=== PATIENT | female | born 1990 | race Caucasian/White ===

== ENCOUNTER → 2018-03-24 | Outpatient (CLI) | payer OTHER ==
[~2018-03-24] MED LIST: BCP; BIRTH CONTROL; CEPH500 PO; CITA20 PO; DIPATR PO; HYDR1TAB94 PO; IBUP800 PO; Keflex500 MG PO; LORA.5 PO; Norco 5-325 Ta1 EACH PO; OXYACE5T PO; PARO20 PO; PROM25 PO; Verotin-Gr Cap1 EACH PO; Zofran Odt4 MG SL
== END ==
LOC: LAB SHORT 10:58 → LAB 10:58
PROVIDERS: Obstetrics & Gynecology
DX: Z01.419 Encounter for gynecological examination (general) (routine) without abnormal findings (principal)
CPT/HCPCS: G0123

== ENCOUNTER → 2018-09-24 | Outpatient (CLI) | payer OTHER | END | disposition home or self-care (01) | LOC: LAB EV 15:54 → LAB SHORT 15:54 | DX: N12 Tubulo-interstitial nephritis, not specified as acute or chronic (principal) | CPT/HCPCS: 87077; 87086; 87186 ==

== ENCOUNTER → 2018-12-16 | Outpatient (CLI) | payer OTHER ==
[2018-12-16 17:47] LABS: BASOPHILS ABSOLUTE AUTO 0.03 K/mm3 (0.00-0.23); BASOPHILS PERCENT AUTO 0 % (0-2); EOSINOPHILS ABSOLUTE AUTO 0.33 K/mm3 (0.00-0.68); EOSINOPHILS PERCENT AUTO 3 % (0-6); Hematocrit 43.4 % (33.0-51.0); Hemoglobin 14.5 g/dL (11.5-16.0); IMMATURE GRAN ABSOLUTE AUTO 0.02 K/mm3 (0.00-0.10); IMMATURE GRAN PERCENT AUTO 0 % (0-1); LYMPHOCYTES PERCENT AUTO 25 % (21-46); MONOCYTES ABSOLUTE AUTO 0.88 K/mm3 (0.16-1.47); MONOCYTES PERCENT AUTO 9 % (4-13); Mean Corpuscular HGB 29.9 pg (26.0-34.0); Mean Corpuscular HGB Conc 33.4 g/dL (31.5-36.5); Mean Corpuscular Volume 90 fL (80-100); Mean Platelet Volume 9.9 fL (9.1-12.4); NEUTROPHILS ABSOLUTE AUTO 5.94 K/mm3 (1.96-9.15); NEUTROPHILS PERCENT AUTO 62 % (41-73); Platelet Count 396 K/mm3 (150-400); RDW Coefficient Variation 13.5 % (11.7-14.2); Red Blood Cell Count 4.85 M/mm3 (3.80-5.20)
[2018-12-16 18:04] LABS: Anion Gap 9 mmol/L (6-16); Blood Urea Nitrogen 8 mg/dL (8-24); Bun/Creatinine Ratio 9.8 (12.0-20.0); CO2, Blood 27 mmol/L (21-32); Calcium, Blood 9.3 mg/dL (8.5-10.1); Chloride, Blood 102 mmol/L (98-108); Creatinine, Blood 0.82 mg/dL (0.40-1.00); Glomerular Filtration Rate >60 (60-); Glucose, Blood 96 mg/dL (70-99); Potassium, Blood 3.6 mmol/L (3.5-5.5); Sodium, Blood 138 mmol/L (136-145)
== END | disposition home or self-care (01) ==
LOC: LAB EV 17:42 → LAB SHORT 17:42
PROVIDERS: Physician Assistant Surgical
DX: R53.83 Other fatigue (principal)
CPT/HCPCS: 80048; 84439; 84443; 84481; 85025; 86800

== ENCOUNTER 2020-01-09 17:43 | Inpatient (IN) | payer OTHER ==
[~2020-01-09] VITALS: Ht 160 cm; Wt 71.8 kg
[~2020-01-09 17:43] MED LIST changes: +Bactrim Ds Tab1 EACH PO
[2020-01-09 19:04] LABS: Source, Urine Clean Catch
[2020-01-09 19:05] LABS: Hematocrit 42.4 % (33.0-51.0); Hemoglobin 13.8 g/dL (11.5-16.0); Mean Corpuscular HGB 28.4 pg (26.0-34.0); Mean Corpuscular HGB Conc 32.5 g/dL (31.5-36.5); Mean Corpuscular Volume 87 fL (80-100); Mean Platelet Volume 9.4 fL (9.1-12.4); Platelet Count 522 K/mm3 (150-400); RDW Coefficient Variation 12.9 % (11.7-14.2); RDW Standard Deviation 41.7 fL (35.1-46.3); Red Blood Cell Count 4.86 M/mm3 (3.80-5.20); White Blood Cell Count 31.25 K/mm3 (4.00-11.30)
[2020-01-09 19:08] LABS: Appearance, Urine Hazy (Clear); Bilirubin, Urine Neg (Neg); Blood, Urine 5+ (Neg); Color, Urine Yellow (P-Yellow); Glucose Qualitative, Urine Neg (Neg); Ketones, Urine Neg (Neg); Leukocyte Esterase, Urine 2+ (Neg); Nitrite, Urine Neg (Neg); Protein, Urine 2+ (Neg); Urobilinogen, Urine 2+ (Normal)
[2020-01-09 19:15] LABS: Bacteria Many /hpf; Mucus Light (0-Heavy); Squamous Epithelial Cells Many /hpf (Few)
[2020-01-09 19:24] LABS: U Amphetamine Screen DETECTED; U Barbituate Screen Not Detected; U Benzodiazapine Screen DETECTED; U Buprenorphine Screen Not Detected; U Cannabinoids Screen DETECTED; U Cocaine Screen Not Detected; U Methadone Screen Not Detected; U Methamphetamine Screen DETECTED; U Opiates Screen Not Detected; U Oxycodone Screen Not Detected; U Phencyclidine Screen Not Detected; U Propoxyphene Screen Not Detected
[2020-01-09 19:26] LABS: Anion Gap 8 mmol/L (6-16); Blood Urea Nitrogen 7 mg/dL (8-24); Bun/Creatinine Ratio 9.8 (12.0-20.0); CO2, Blood 27 mmol/L (21-32); Calcium, Blood 8.5 mg/dL (8.5-10.1); Chloride, Blood 98 mmol/L (98-108); Creatinine, Blood 0.71 mg/dL (0.40-1.00); Glomerular Filtration Rate >60 (60-); Glucose, Blood 108 mg/dL (70-99); Sodium, Blood 133 mmol/L (136-145)
[2020-01-09 19:31] LABS: BAND PERCENT MAN 5 % (0-8); BASOPHILS PERCENT MAN 0 % (0-2); EOSINOPHILS PERCENT MAN 0 % (0-6); LYMPHOCYTES ABSOLUTE MAN 3.12 K/mm3 (0.84-5.20); LYMPHOCYTES PERCENT MAN 10 % (21-46); METAMYELOCYTE ABSOLUTE MAN 1.87 K/mm3 (0.00-0.00); METAMYELOCYTE PERCENT MAN 6 % (0-0); MONOCYTES ABSOLUTE MAN 1.87 K/mm3 (0.16-1.47); MONOCYTES PERCENT MAN 6 % (4-13); MYELOCYTE ABSOLUTE MAN 0.62 K/mm3 (0.00-0.00); MYELOCYTE PERCENT MAN 2 % (0-0); NEUTROPHILS ABSOLUTE MAN 22.18 K/mm3 (1.96-9.15); PROMYELOCYTE ABSOLUTE MAN 0.93 K/mm3 (0.00-0.00); PROMYELOCYTE PERCENT MAN 3 % (0-0); SEG NEUTROPHILS PERCENT MAN 66 % (41-73); TOTAL CELLS COUNTED 100
[2020-01-09 19:32] LABS: OTHER CELL PERCENT MAN 2 % (0-0)
--- NOTE | 2020-01-09 22:58 | NUR ---
PATIENT IS A NEW ADMIT FROM THE ED AXO X 4. ARRIVED VIA W/C AND INDEPENDENT TRANSPORT TO BED. REPORTS RIGHT EYE SURGERY X FIVE DAYS AGO. PATIENT REPORTS LEFT ARM PAIN WITH SCABS AND ABCESSES SCATTER T/O LEGS, ARMS, BACK AND LEFT FOREHEAD. PATIENT ORIENTED TO ROOM AND CALL LIGHT SYSTEM. CEDS AND REPORTS LAST USED METH ONE MONTH AGO AND SMOKES CANNABIS FOUR DAYS A WEEK. WILL CONTINUE TO MONITOR.
--- NOTE | 2020-01-09 23:04 | NUR ---
IMAGING CALLED AND REPORTS PATIENT SENT TO MEDICAL BEFORE CT SCAN. HOSPITALIST DR REYES NOTIFIED AND REPORTS CT SCAN NEEDED TONIGHT. CHARGE NURSE NOTIFIED AND WILL HAVE PATIENT TRANSPORTS TO IMAGING BY AN RN.
--- NOTE | 2020-01-09 23:06 | NUR ---
TELEMETRY PLACED AND TECH REPORTS ST 115. CALL LIGHT IN REACH.
--- NOTE | 2020-01-09 23:36 | NUR ---
PATIENT OUT TO IMAGING FOR CT SCAN PER ORDERS VIA W/C.
--- NOTE | 2020-01-10 00:38 | NUR ---
PATIENT REFUSING IV POTASSIUM CHLORIDE 20 MEQ AND NS AT 125 ML/HR. PATIENT EXTREMELY ANXIOUS AT THIS TIME. WILL TRY LATER.
--- NOTE | 2020-01-10 02:14 | NUR ---
HOSPITALIST DR ALCAZAR CHANGED IV POTASSIUM TO PO POTASSIUM 40 MEQ X ONE.
--- NOTE | 2020-01-10 03:10 | NUR ---
SHIFT SUMMARY PATIENT HAVING INCREASED AGITATION AND FIDGETING WITH IV FLUIDS INFUSING. HX OF METH ABUSE. PATIENT REFUSED IV POTASSIUM AND ASKED FOR FLUIDS TO BE OFF AND RESTARTED LATER IN SHIFT. IV POTASSIUM CHANGED TO PO BY HOSPITALIST DR ALCAZAR. IMAGING REPORTED CT SCAN WASN'T COMPLETE BEFORE PATIENT SET TO MEDICAL FLOOR. DR ALCAZAR NOTIFIED AND REPORTED TO SEND PATIENT FOR SCAN. TOOK PO MEDICATION WHOLE WITH WATER. REPORTED LEFT ARM PAIN AND IV FENTANYL 25 MCG GIVEN PER EMAR. TYLENOL 650 MG GIVEN FOR L ARM PAIN. PIV REMAINS INTACT. BURGLARY INVESTIGATOR REPORTS ST 106-115. MULTIPLE SMALL ABSECESSES/SCABS ON FACE, BACK, AND EXTREMETIES. REPORTED RIGHT EYE SURGERY X FIVE DAYS AGO. PATIENT ANXIOUS T/O NIGHT AND MOANING-TALKING TO SELF. CALL LIGHT IN REACH. BED IN LOWEST POSITION. WILL CONTINUE TO MONITOR UNTIL DAY SHIFT NURSE ASSUMES CARE.
[2020-01-10 05:14] LABS: Hemoglobin 12.7 g/dL (11.5-16.0); Mean Corpuscular HGB 28.2 pg (26.0-34.0); Mean Corpuscular HGB Conc 32.6 g/dL (31.5-36.5); Mean Corpuscular Volume 87 fL (80-100); Mean Platelet Volume 9.6 fL (9.1-12.4); Platelet Count 454 K/mm3 (150-400); RDW Coefficient Variation 13.1 % (11.7-14.2); RDW Standard Deviation 41.1 fL (35.1-46.3); Red Blood Cell Count 4.51 M/mm3 (3.80-5.20); White Blood Cell Count 33.03 K/mm3 (4.00-11.30)
[2020-01-10 05:54] LABS: Alanine Aminotransfer (ALT/SGP 39 U/L (12-78); Albumin, Blood 2.4 g/dL (3.4-5.0); Albumin/Globulin Ratio 0.6 (0.8-1.8); Alk Phos 145 U/L (50-136); Anion Gap 10 mmol/L (6-16); Aspartate Aminotrans (AST/SGOT 24 U/L (12-37); Bilirubin, Total 0.4 mg/dL (0.1-1.0); Blood Urea Nitrogen 5 mg/dL (8-24); Bun/Creatinine Ratio 7.2 (12.0-20.0); CO2, Blood 24 mmol/L (21-32); Chloride, Blood 103 mmol/L (98-108); Free Thyroxine 1.27 ng/dL (0.70-1.60); Globulin, Blood 3.9 g/dL (2.2-4.0); Glomerular Filtration Rate >60 (60-); Glucose, Blood 96 mg/dL (70-99); Potassium, Blood 3.3 mmol/L (3.5-5.5); Sodium, Blood 137 mmol/L (136-145); Thyroid Stimulating Hormone 0.033 uIU/mL (0.360-4.800); Total Protein, Blood 6.3 g/dL (6.4-8.2); Triiodothyronine, Free 2.61 pg/mL (2.18-3.98)
[2020-01-10 06:11] LABS: BAND PERCENT MAN 4 % (0-8); BASOPHILS PERCENT MAN 0 % (0-2); EOSINOPHILS PERCENT MAN 0 % (0-6); LYMPHOCYTES ABSOLUTE MAN 3.63 K/mm3 (0.84-5.20); LYMPHOCYTES PERCENT MAN 11 % (21-46); METAMYELOCYTE ABSOLUTE MAN 1.65 K/mm3 (0.00-0.00); METAMYELOCYTE PERCENT MAN 5 % (0-0); MONOCYTES PERCENT MAN 10 % (4-13); MYELOCYTE ABSOLUTE MAN 2.64 K/mm3 (0.00-0.00); MYELOCYTE PERCENT MAN 8 % (0-0); NEUTROPHILS ABSOLUTE MAN 21.46 K/mm3 (1.96-9.15); PROMYELOCYTE ABSOLUTE MAN 0.33 K/mm3 (0.00-0.00); PROMYELOCYTE PERCENT MAN 1 % (0-0); SEG NEUTROPHILS PERCENT MAN 61 % (41-73); TOTAL CELLS COUNTED 100
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
--- NOTE | 2020-01-10 18:42 | NUR ---
PT CAME OUT IN THE HALLWAY AND REPORTS THE PAIN IN HER ARM HAS MOVED FROM BICEP TO LEFT INNER ARM/ AC AREA. PT NOTED TO HAVE INCREASED SWLLING AND REDNESS BEYOND OUTLINED AREA FROM THIS AM. CALLED AND SPOKE WITH DR ANDRES, PER DR ANDRES NO CHANGES TONIGHT AND HE MAY REPEAT CT SCAN TOMORROW. [facility] ENCOURAGED TO ELEVATE ARM. WILL REPORT TO NIGHT RN.
--- NOTE | 2020-01-10 20:24 | NUR ---
CALL TO HOSPITALIST D/T PT REPORTS OF INCREASING PAIN IN LUE AND POOR PAIN MANAGEMENT. PT EXPERIENCING HIGH ANIXIETY SURROUNDING THE INCREASED REDNESS AND SWELLING OF HER ARM. ATIVAN ADMINISTERED ORDERED. HOSPITALIST, MERI, ORDERED 1X DOSE OF TORADOL 30MG IV X 1.
--- NOTE | 2020-01-11 04:29 | NUR ---
SHIFT SUMMARY: TACHYCARDIC. AFEB. AAOX3. COMMUNICATES NEEDS. PT RESPONDED WELL TO PRN ATIVAN. CONT TO BE JITTERY AND SPEAKS QUICKLY, BUT GENERALLY LESS ANXIOUS. OT DOSE OF TORADOL EFFECTIVELY MANAGED PAIN. OXYCODONE GIVEN W/ TYLENOL X 1 TONIGHT, PT STATES LESS EFFECTIVE THAN TORADOL, BUT STILL HELPFUL. L ARM W/SWELLING AND REDNESS BEYOND THE [place]ARPIE OUTLINE, CONSISTENT W/INCREASED ERYTHEMA NOTED BY AND REPORTED TO MD BY DAY RN. WILL CONT TO MONITOR.
[2020-01-11 05:47] LABS: Anion Gap 5 mmol/L (6-16); Blood Urea Nitrogen 12 mg/dL (8-24); Bun/Creatinine Ratio 15.1 (12.0-20.0); CO2, Blood 26 mmol/L (21-32); Calcium, Blood 7.8 mg/dL (8.5-10.1); Chloride, Blood 103 mmol/L (98-108); Glomerular Filtration Rate >60 (60-); Glucose, Blood 109 mg/dL (70-99); Potassium, Blood 3.4 mmol/L (3.5-5.5); Sodium, Blood 134 mmol/L (136-145)
[2020-01-11 05:48] LABS: Hematocrit 37.3 % (33.0-51.0); Hemoglobin 12.2 g/dL (11.5-16.0); Mean Corpuscular HGB 28.8 pg (26.0-34.0); Mean Corpuscular HGB Conc 32.7 g/dL (31.5-36.5); Mean Corpuscular Volume 88 fL (80-100); Mean Platelet Volume 9.8 fL (9.1-12.4); Platelet Count 470 K/mm3 (150-400); RDW Coefficient Variation 13.4 % (11.7-14.2); RDW Standard Deviation 43.3 fL (35.1-46.3); Red Blood Cell Count 4.23 M/mm3 (3.80-5.20); White Blood Cell Count 49.92 K/mm3 (4.00-11.30)
[2020-01-11 06:01] LABS: BAND PERCENT MAN 7 % (0-8); BASOPHILS PERCENT MAN 0 % (0-2); EOSINOPHILS PERCENT MAN 0 % (0-6); LYMPHOCYTES ABSOLUTE MAN 2.99 K/mm3 (0.84-5.20); LYMPHOCYTES PERCENT MAN 6 % (21-46); METAMYELOCYTE ABSOLUTE MAN 3.49 K/mm3 (0.00-0.00); METAMYELOCYTE PERCENT MAN 7 % (0-0); MONOCYTES ABSOLUTE MAN 3.99 K/mm3 (0.16-1.47); MONOCYTES PERCENT MAN 8 % (4-13); MYELOCYTE ABSOLUTE MAN 2.99 K/mm3 (0.00-0.00); MYELOCYTE PERCENT MAN 6 % (0-0); NEUTROPHILS ABSOLUTE MAN 36.44 K/mm3 (1.96-9.15); SEG NEUTROPHILS PERCENT MAN 66 % (41-73); TOTAL CELLS COUNTED 100
[2020-01-11 13:21] LABS: Free Thyroxine 1.23 ng/dL (0.70-1.60)
[2020-01-11 13:22] LABS: Thyroid Stimulating Hormone 0.045 uIU/mL (0.360-4.800)
--- NOTE | 2020-01-11 17:34 | NUR ---
SHIFT SUMMARY- PT IS A/O, PLESANT AND COOPERATIVE. HER ARM IS HOT, RED AND SWOLLEN, AND THE REDNESS HAS MIGRATED BEYOND THE PREVIOUS DAYS MARKINGS. DR. AGUILA CONSULTED AND SHE WILL GO THIS EVENING FOR AND I/D WITH WOUND VAC. DR. LYNN WAS CONSULTED AND WILL DRAIN AN ABCESS ON HER PUBIC AREA. SHE IS RECIEVING PAIN MEDICATION. SHE WAS PLACED NPO FOR UPCOMING PROCEDURES.
--- NOTE | 2020-01-11 21:18 | NUR ---
RECEIVED REPORT FROM PACU NURSE BENNY AT 2009. PT ARRIVED BACK ON MEDICAL FLOOR AT 2019. DROWSY BUT RESPONSIVE TO VERBAL STIMULI. VSS. CONT TO BE TACHYCARDIC, COMPARABLE TO BASELINE. IV LR DRIPPING SLOWLY. DRESSING TO MONS PUBIS CDI. WOUND VAC SUCTION AT 120MMHG ON CATHERINE CONTINUOUSLY. SMALL AMTS OF SEROSANGUINOUS DRAINAGE IN COLLECTION CHAMBER. R ARM CONTINUES POONAM RED AND SWOLLEN. OXY AND TYL ADMINISTERED FOR PAIN 04/11 ORDERED.
--- NOTE | 2020-01-12 04:58 | NUR ---
SHIFT SUMMARY: TEMP 99'S AND PULSE BETWEEN 92-112 TONIGHT. MED X 2 W/OXYCODONE AND TYLENOL. PT STATES ANALGESICS HELP. CATHERINE W/WOUND VAC IN PLACE AND SUCTIONING CONTINUOUSLY. SCANT AMTS OF SEROSANG DRAINAGE IN WOUND VAC CONTAINER AND TUBING. IV ABT INFUSED ORDERED. CATHERINE CONT TO BE RED, HOT TO TOUCH AND SWOLLEN. DRESSING ON MONS PUBIS CDI. T/F TO BSC W/ 1 ASSIST DUE TO RECENT SEDATION AND UNSTEADINESS. TOLERATING WATER, JELLO, AND CRACKERS FOR SNACKS TONIGHT. WILL CONT TO MONITOR.
[2020-01-12 07:43] LABS: Vancomycin, Trough 16.9 ug/mL (5.0-10.0)
[2020-01-12 08:35] LABS: Hematocrit 41.7 % (33.0-51.0); Hemoglobin 13.1 g/dL (11.5-16.0); Mean Corpuscular HGB 28.5 pg (26.0-34.0); Mean Corpuscular HGB Conc 31.4 g/dL (31.5-36.5); Mean Platelet Volume 9.8 fL (9.1-12.4); Platelet Count 502 K/mm3 (150-400); RDW Coefficient Variation 13.8 % (11.7-14.2); RDW Standard Deviation 45.9 fL (35.1-46.3)
[2020-01-12 08:38] LABS: Mean Corpuscular Volume 91 fL (80-100)
[2020-01-12 08:40] LABS: White Blood Cell Count 50.68 K/mm3 (4.00-11.30)
[2020-01-12 08:56] LABS: BAND PERCENT MAN 9 % (0-8); BASOPHILS PERCENT MAN 0 % (0-2); EOSINOPHILS PERCENT MAN 0 % (0-6); LYMPHOCYTES ABSOLUTE MAN 5.06 K/mm3 (0.84-5.20); LYMPHOCYTES PERCENT MAN 10 % (21-46); METAMYELOCYTE ABSOLUTE MAN 2.02 K/mm3 (0.00-0.00); METAMYELOCYTE PERCENT MAN 4 % (0-0); MONOCYTES ABSOLUTE MAN 2.53 K/mm3 (0.16-1.47); MONOCYTES PERCENT MAN 5 % (4-13); MYELOCYTE ABSOLUTE MAN 3.04 K/mm3 (0.00-0.00); MYELOCYTE PERCENT MAN 6 % (0-0); NEUTROPHILS ABSOLUTE MAN 38.01 K/mm3 (1.96-9.15); SEG NEUTROPHILS PERCENT MAN 66 % (41-73); TOTAL CELLS COUNTED 100
[2020-01-12 15:09] LABS: FINAL INTERPRETATION Negative (.); HIV 1 AB Negative (Negative); HIV 2 AB Negative (Negative)
--- NOTE | 2020-01-12 20:02 | NUR ---
PT COB[facility] TRANSFER TO [facility] REPORT CALLED TO JARAD RAJAN. PT MEDICATED PER SEP FOR PAIN MEDICATION, AND ANXIETY PER SEP. WILL BE TRANSPORTED VIA AMBULANCE TO [facility]. LEFT WITH IV PUMP AND LR AT 125 ML/HR. AND WOUND VAC. PT MOTHER AT BEDSIDE.
== END 2020-01-12 19:15 | disposition short-term general hospital (02) | DRG 854 ==
LOC: ER 17:43 → MEDS 17:44 → ENPENDDIS 01-12 18:14 → MEDS 01-12 19:15
PROVIDERS: Emergency Medicine; Internal Medicine; Obstetrics & Gynecology; Orthopaedic Surgery; Pharmacist; ADMIT Internal Medicine
PROC: 0JBF0ZZ Excision of Left Upper Arm Subcutaneous Tissue and Fascia, Open Approach (ICD-10-PCS; principal; 2020-01-11 17:00)
PROC: 0U9M0ZZ Drainage of Vulva, Open Approach (ICD-10-PCS; 2020-01-11 17:00)
DX: A41.9 Sepsis, unspecified organism (principal); M60.001 Infective myositis, unspecified left arm; N76.4 Abscess of vulva; L03.114 Cellulitis of left upper limb; F17.210 Nicotine dependence, cigarettes, uncomplicated; F15.10 Other stimulant abuse, uncomplicated; H11.31 Conjunctival hemorrhage, right eye; E87.6 Hypokalemia; M60.822 Other myositis, left upper arm
CPT/HCPCS: 36415; 73201; 80048; 80053; 80202; 81001; 83605; 84439; 84443; 84481; 85025; 86701; 86702; 87040; 87070; 87075; 87077; 87086; 87147; 87186; 87205; 96365-59; 96366; 96367; 96372; 96375; 96376; 99285-25; A9270; G0378; J0295; J0330; J0696; J1170; J1650; J1885; J2250; J2370; J2405; J2704; J3010; J3370; J3480; J7030; J7050; J7120; Q9967; U0002

== ENCOUNTER 2020-01-18 17:16 | Emergency (ER) | payer OTHER ==
[~2020-01-18] VITALS: Ht 162.6 cm; Wt 72.6 kg
[2020-01-18] MEDS ORDERED: OXYC5 PO (17:48)
== END 2020-01-18 19:13 | disposition home or self-care (01) ==
LOC: ER 17:16
DX: S46.292D Other injury of muscle, fascia and tendon of other parts of biceps, left arm, subsequent encounter (principal); F17.210 Nicotine dependence, cigarettes, uncomplicated
CPT/HCPCS: 99282

== ENCOUNTER → 2020-02-09 | Outpatient (CLI) | payer OTHER ==
[~2020-02-09] MED LIST changes: +OXYC5 PO
[2020-02-09 17:51] LABS: BASOPHILS PERCENT AUTO 1 % (0-2); EOSINOPHILS PERCENT AUTO 6 % (0-6); Hematocrit 39.8 % (33.0-51.0); Hemoglobin 12.7 g/dL (11.5-16.0); IMMATURE GRAN ABSOLUTE AUTO 0.02 K/mm3 (0.00-0.10); IMMATURE GRAN PERCENT AUTO 0 % (0-1); LYMPHOCYTES ABSOLUTE AUTO 1.77 K/mm3 (0.84-5.20); LYMPHOCYTES PERCENT AUTO 25 % (21-46); MONOCYTES ABSOLUTE AUTO 0.55 K/mm3 (0.16-1.47); MONOCYTES PERCENT AUTO 8 % (4-13); Mean Corpuscular HGB 29.1 pg (26.0-34.0); Mean Corpuscular HGB Conc 31.9 g/dL (31.5-36.5); Mean Corpuscular Volume 91 fL (80-100); Mean Platelet Volume 9.6 fL (9.1-12.4); NEUTROPHILS PERCENT AUTO 60 % (41-73); Platelet Count 447 K/mm3 (150-400); RDW Coefficient Variation 14.3 % (11.7-14.2); RDW Standard Deviation 47.6 fL (35.1-46.3); Red Blood Cell Count 4.36 M/mm3 (3.80-5.20); White Blood Cell Count 7.14 K/mm3 (4.00-11.30)
[2020-02-09 18:18] LABS: Anion Gap 3 mmol/L (6-16); Blood Urea Nitrogen 11 mg/dL (8-24); Bun/Creatinine Ratio 14.5 (12.0-20.0); CO2, Blood 28 mmol/L (21-32); Calcium, Blood 9.3 mg/dL (8.5-10.1); Chloride, Blood 107 mmol/L (98-108); Creatinine, Blood 0.76 mg/dL (0.40-1.00); Glomerular Filtration Rate >60 (60-); Glucose, Blood 86 mg/dL (70-99); Phosphorus, Blood 3.1 mg/dL (2.5-4.9); Potassium, Blood 4.2 mmol/L (3.5-5.5); Sodium, Blood 138 mmol/L (136-145)
== END | disposition home or self-care (01) ==
LOC: LAB 16:26 → LAB SHORT 16:26
PROVIDERS: Physician Assistant
DX: N17.9 Acute kidney failure, unspecified (principal); A49.02 Methicillin resistant Staphylococcus aureus infection, unspecified site
CPT/HCPCS: 80069; 85025

== ENCOUNTER 2021-11-18 18:08 | Emergency (ER) | payer OTHER ==
[~2021-11-18] VITALS: Ht 160 cm; Wt 72.6 kg
== END 2021-11-18 20:24 | disposition home or self-care (01) ==
LOC: ER 18:08
DX: Z29.13 Encounter for prophylactic Rho(D) immune globulin (principal); F17.210 Nicotine dependence, cigarettes, uncomplicated
CPT/HCPCS: 96372; 99281-25; J2791

== ENCOUNTER 2023-01-10 21:20 | Emergency (ER) | payer OTHER ==
[~2023-01-10] VITALS: Ht 160 cm; Wt 52.6 kg
[2023-01-10 21:23] VITALS: BP 125/83
[2023-01-10] MEDS ORDERED: IBUP600 PO (22:28)
== END 2023-01-10 22:47 | disposition home or self-care (01) ==
LOC: ER 21:20
DX: S62.633A Displaced fracture of distal phalanx of left middle finger, initial encounter for closed fracture (principal); W23.0XXA Caught, crushed, jammed, or pinched between moving objects, initial encounter; F17.210 Nicotine dependence, cigarettes, uncomplicated
CPT/HCPCS: 73140

== ENCOUNTER 2024-04-19 20:03 | Emergency (ER) | payer OTHER ==
[~2024-04-19] VITALS: Ht 162.6 cm; Wt 72.6 kg
[~2024-04-19 20:03] MED LIST changes: +IBUP600 PO
[2024-04-19 20:33] LABS: BASOPHILS ABSOLUTE AUTO 0.06 K/mm3 (0.00-0.23); BASOPHILS PERCENT AUTO 0 % (0-2); EOSINOPHILS ABSOLUTE AUTO 0.42 K/mm3 (0.00-0.68); EOSINOPHILS PERCENT AUTO 3 % (0-6); Hematocrit 41.7 % (33.0-51.0); Hemoglobin 13.5 g/dL (11.5-16.0); IMMATURE GRAN ABSOLUTE AUTO 0.06 K/mm3 (0.00-0.10); IMMATURE GRAN PERCENT AUTO 0 % (0-1); LYMPHOCYTES ABSOLUTE AUTO 2.69 K/mm3 (0.84-5.20); LYMPHOCYTES PERCENT AUTO 16 % (21-46); MONOCYTES ABSOLUTE AUTO 1.29 K/mm3 (0.16-1.47); MONOCYTES PERCENT AUTO 8 % (4-13); Mean Corpuscular HGB 29.9 pg (26.0-34.0); Mean Corpuscular HGB Conc 32.4 g/dL (31.5-36.5); Mean Corpuscular Volume 92 fL (80-100); Mean Platelet Volume 8.9 fL (9.1-12.4); NEUTROPHILS ABSOLUTE AUTO 12.17 K/mm3 (1.96-9.15); NEUTROPHILS PERCENT AUTO 73 % (41-73); Platelet Count 469 K/mm3 (150-400); RDW Coefficient Variation 13.7 % (11.7-14.2); RDW Standard Deviation 46.8 fL (35.1-46.3); Red Blood Cell Count 4.52 M/mm3 (3.80-5.20); White Blood Cell Count 16.69 K/mm3 (4.00-11.30)
[2024-04-19 20:54] LABS: Albumin, Blood 3.5 g/dL (3.4-5.0); Bilirubin, Total 0.4 mg/dL (0.1-1.0); Bun/Creatinine Ratio 15.8 (12.0-20.0); Calcium, Blood 9.2 mg/dL (8.5-10.1); Creatinine, Blood 0.82 mg/dL (0.40-1.00); Globulin, Blood 3.6 g/dL (2.2-4.0); Potassium, Blood 3.8 mmol/L (3.5-5.5); Total Protein, Blood 7.1 g/dL (6.4-8.2)
[2024-04-19] MEDS ORDERED: Ketorolac Tromethamine 30mg Vial IV ONE (21:15)
[2024-04-19 23:09] LABS: Source, Urine Clean Catch
[2024-04-19 23:23] LABS: Bilirubin, Urine Neg (Neg); Blood, Urine 5+ (Neg); Glucose Qualitative, Urine Neg (Neg); Ketones, Urine Neg (Neg); Leukocyte Esterase, Urine 3+ (Neg); Nitrite, Urine Pos (Neg); Protein, Urine 1+ (Neg); Urobilinogen, Urine NORM (Normal)
[2024-04-19 23:36] LABS: Appearance, Urine Hazy (Clear); Color, Urine Yellow (P-Yellow)
[2024-04-19 23:37] LABS: Bacteria Many /hpf; Squamous Epithelial Cells Few /hpf (Few); White Blood Cells, Urine 25-50 /hpf (0-5)
[2024-04-19] MEDS ORDERED: Cephalexin Monohydrate 500 MG Cap PO ONE (23:45)
[2024-04-19] MEDS ORDERED: CEPH500 PO (23:52)
[2024-04-20 00:01] VITALS: BP 127/83
== END 2024-04-20 00:16 | disposition home or self-care (01) ==
LOC: ER 20:03
PROVIDERS: Student in an Organized Health Care Education/Training Program
DX: N39.0 Urinary tract infection, site not specified (principal); F17.210 Nicotine dependence, cigarettes, uncomplicated
CPT/HCPCS: 80053; 81001; 84703; 85025; 87077; 87086; 87186; 96374; 99284-25; A9270; J1885

== ENCOUNTER 2024-04-23 18:19 | Emergency (ER) | payer OTHER ==
[~2024-04-23] VITALS: Ht 162.6 cm; Wt 72.6 kg
[2024-04-23 18:33] VITALS: BP 138/83
== END 2024-04-23 19:29 | disposition home or self-care (01) ==
LOC: ER 18:19
DX: R04.0 Epistaxis (principal); F17.210 Nicotine dependence, cigarettes, uncomplicated; Z79.899 Other long term (current) drug therapy
CPT/HCPCS: 99283

== ENCOUNTER → 2024-08-21 | Outpatient (CLI) | payer OTHER ==
[2024-08-21 20:30] LABS: Candida Group, PCR NOT DETECTED (NOT DETECT); Candida glabrata-krusei, PCR NOT DETECTED (NOT DETECT)
[2024-08-21 21:01] LABS: Chlamydia Trachomatis Cervix NOT DETECTED (NOT DETECT)
[2024-08-21 21:56] LABS: Bacterial Vaginosis PCR Positive (NEGATIVE); Neisseria Gonorrhoea Cervix DETECTED (NOT DETECT)
== END ==
LOC: LAB 19:17 → LAB SHORT 19:17
PROVIDERS: Physician Assistant Medical
DX: N94.10 Unspecified dyspareunia (principal)
CPT/HCPCS: 81515; 87491; 87591

== ENCOUNTER 2025-03-26 09:27 | Emergency (ER) | payer OTHER ==
[~2025-03-26] VITALS: Ht 160 cm; Wt 81.7 kg
[2025-03-26 09:57] VITALS: BP 154/106
[2025-03-26] MEDS ORDERED: CEPH500 PO (10:02)
== END 2025-03-26 10:06 | disposition home or self-care (01) ==
LOC: ER 09:27
DX: L03.221 Cellulitis of neck (principal); F17.210 Nicotine dependence, cigarettes, uncomplicated; Z79.899 Other long term (current) drug therapy
CPT/HCPCS: 99283